=== PATIENT | male | born 1975 | race African-American/Black ===

== ENCOUNTER 2016-07-28 12:05 | Inpatient (IN) | payer OTHER, MEDICAID ==
[2016-07-28] VITALS (12 sets, daily range): BP systolic 113–128; BP diastolic 65–78; PULSE 114–128; RESP 18; TEMP 99.3–101.7; O2SAT 97–100
[2016-07-28] MEDS ORDERED: ETOMIDATE 20 MG/10 ML VIAL ONE (12:09)
[2016-07-28] MEDS ORDERED: ceFAZolin 2 GM PREMIX 50 ML ONE (12:10)
[2016-07-28] MEDS ORDERED: DIPHTH/TETANUS/ACEL PERTUSSIS (BOOSTER) 0.5 ML VIAL/PFS IM ONE ×2 (12:10→12:56)
[2016-07-28] MEDS ORDERED: PROPOFOL 1000 MG/100 ML INJ 100 ML ONE (12:15)
[2016-07-28] MEDS ORDERED: MIDAZOLAM HCL 5 MG/ML VIAL (1 ML) ONE ×2 (12:16→12:25)
[2016-07-28 12:37] LABS: AUTOMATED NEUTROPHIL # 6.8 TH/MM3 (1.8-7.7); BASOPHIL # 0.1 TH/MM3 (0-0.2); EOSINOPHIL # 0.1 TH/MM3 (0-0.4); EOSINOPHIL % 1.2 % (0.0-4.0); HEMATOCRIT 45.6 % (39.0-51.0); HEMO FLAGS DIFF FINAL; LYMPH % 27.3 % (9.0-44.0); MEAN CELL VOLUME 85.4 FL (80.0-100.0); MEAN CORPUSCULAR HEMOGLOBIN 27.9 PG (27.0-34.0); MEAN CORPUSCULAR HGB CONC 32.6 % (32.0-36.0); MONO % 7.6 % (0.0-8.0); NEUT % 62.9 % (16.0-70.0); PLATELET COUNT 355 TH/MM3 (150-450); RED BLOOD COUNT 5.35 MIL/MM3 (4.50-5.90); RED CELL DISTRIBUTION WIDTH 14.3 % (11.6-17.2); WHITE BLOOD COUNT 10.8 TH/MM3 (4.0-11.0)
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
[2016-07-28 12:52] LABS: PROTHROMBIN TIME - PATIENT 10.7 SEC (9.8-11.6)
[2016-07-28 12:53] LABS: APTT (PATIENT) 19.7 SEC (24.3-30.1)
[2016-07-28] MEDS ORDERED: LIDOCAINE 1%/EPINEPHrine 1:100,000 SOLN 50 ML VIAL ONE (12:55)
[2016-07-28] MEDS ORDERED: ceFAZolin 2 GM PREMIX 50 ML IV STA (12:56)
[2016-07-28 13:10] LABS: I-STAT POTASSIUM 3.4 MMOL/L (3.5-4.9); I-STAT SODIUM 139 MMOL/L (138-146)
[2016-07-28] MEDS ORDERED: IOHEXOL 350 MG/ML 10 ML VIAL (for RAD DIAG) IV ONE (13:17)
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
[2016-07-28 13:25] LABS: ANION GAP 12 MEQ/L (5-15); AST (GOT) 19 U/L (15-37); BICARBONATE 22.5 MEQ/L (21.0-32.0); BLOOD UREA NITROGEN 20 MG/DL (7-18); CHLORIDE 103 MEQ/L (98-107); GLOMERULAR FILTRATION RATE 38 ML/MIN (>89); MAGNESIUM 1.8 MG/DL (1.5-2.5); POTASSIUM 3.3 MEQ/L (3.5-5.1); SODIUM (NA) 137 MEQ/L (136-145)
[2016-07-28 13:26] LABS: ALT (GPT) 22 U/L (12-78)
[2016-07-28 13:27] LABS: AMPHETAMINE, URINE NEG (NEG); BARBITURATES, URINE NEG (NEG); COCAINE, URINE NEG (NEG)
--- NOTE | 2016-07-28 13:27 | RADRPT ---
EXAM DATE/TIME: 07/28/2016 13:08 [facility] COMPARISON: CHEST SINGLE AP, July 28, 2016, 11:59. INDICATIONS : Post left chest tube placement. MEDICAL HISTORY : None. SURGICAL HISTORY : None. ENCOUNTER: Subsequent ACUITY: 1 day PAIN SCORE: Non-responsive. LOCATION: Left chest FINDINGS: A single portable frontal view of the chest shows interval placement of a left thoracostomy tube. End otracheal tube tip is repositioned and now 4 cm from the matthew. Nasogastric tube has been placed wit h the tip in the fundus. No pneumothorax observed. Linear areas of parenchymal density seen within april th upper lobes and the left lower lobe consistent with atelectasis. No effusions. Heart is normal in size. Mild scoliotic curvature of the spine. Surgical clips seen at the base of the neck. CONCLUSION: 1. Interval placement of a left thoracostomy tube without pneumothorax. 2. Scattered areas of atelectasis. Juanito Lyons Jr., MD on July 28, 2016 at 13:24 Board Certified Radiologist. This report was verified electronically.
[2016-07-28 13:29] LABS: ACETAMINOPHEN LESS THAN 2.0 MCG/ML (10.0-30.0); ALKALINE PHOSPHATASE 42 U/L (45-117); CREATINE KINASE 572 U/L (39-308); TOTAL BILIRUBIN ADULT 0.5 MG/DL (0.2-1.0)
[2016-07-28] MEDS ORDERED: MISCELLANEOUS NURSING INFORMATION XX SCH ×2 (13:30→14:00)
[2016-07-28] MEDS ORDERED: BISACODYL 10 MG SUPP RECTAL PRN ×2 (13:30→14:00)
[2016-07-28] MEDS ORDERED: CHLORHEXIDINE GLUCONATE 2 % 1 PACK (2 CLOTHS) TOP PRN ×2 (13:30→14:00)
[2016-07-28] MEDS ORDERED: SODIUM CHLORIDE 0.9% FLUSH 10 ML FLUSH IV FLUSH PRN ×2 (13:30→14:00)
[2016-07-28] MEDS ORDERED: SENNOSIDES 8.6 MG TAB PO PRN ×2 (13:30→14:00)
[2016-07-28] MEDS ORDERED: POTASSIUM PHOSPHATE MONOBASIC 500 MG TAB PO/TUBE PRN (13:30)
[2016-07-28] MEDS ORDERED: SODIUM PHOSPHATE INJ 30 MMOL in SODIUM CHLOR 0.9% 250 ML INJ 240 ML IV PRN (13:30)
[2016-07-28] MEDS ORDERED: POTASSIUM CHLOR 20 MEQ PREMIX 100 ML IV PRN ×2 (13:30)
[2016-07-28] MEDS ORDERED: PROPOFOL 1000 MG/100 ML INJ 100 ML IV SCH ×2 (13:30→14:00)
[2016-07-28] MEDS ORDERED: SODIUM CHLOR 0.9% 1000 ML INJ 1,000 ML IV SCH (13:30)
[2016-07-28] MEDS ORDERED: MAGNESIUM SULFATE INJ 4 GM in SODIUM CHLORIDE 0.9% INJ 92 ML IV PRN (13:30)
[2016-07-28] MEDS ORDERED: POTASSIUM CHLOR 40 MEQ PREMIX 100 ML IV PRN ×2 (13:30)
[2016-07-28] MEDS ORDERED: POTASSIUM PHOSPHATE INJ 30 MMOL in SODIUM CHLOR 0.9% 250 ML INJ 250 ML IV PRN (13:30)
[2016-07-28] MEDS ORDERED: MAGNESIUM SULFATE INJ 2 GM in SODIUM CHLORIDE 0.9% INJ 96 ML IV PRN (13:30)
[2016-07-28] MEDS ORDERED: LACTULOSE SYRUP 20 GM/30 ML CUP PO PRN ×2 (13:30→14:00)
[2016-07-28] MEDS ORDERED: MAGNESIUM OXIDE 400 MG TAB PO PRN (13:30)
[2016-07-28] MEDS ORDERED: MAGNESIUM HYDROXIDE SUSP 30 ML CUP PO PRN ×2 (13:30→14:00)
[2016-07-28] MEDS ORDERED: POTASSIUM PHOSPHATE MONOBASIC 500 MG TAB PO PRN (13:30)
[2016-07-28] MEDS ORDERED: POTASSIUM CHLORIDE 25 MEQ EFFERVESCENT TAB PO PRN (13:30)
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
[2016-07-28 13:46] LABS: CKMB 1.5 NG/ML (0.5-3.6)
--- NOTE | 2016-07-28 13:46 | PD.PROCEDR ---
Central Line Procedure REASON FOR PROCEDURE Central venous access PROCEDURE PERFORMED Central line placement: [x ] CONSENT emergency ANESTHESIA Local injection of 1% Lidocaine DESCRIPTION OF THE PROCEDURE The patient was placed in supine, mild Trendelenburg position. The area right inguinal area was exposed and cleansed with ChloraPrep, times two. Large sterile drape was used to cover the patient, with the site exposed, under sterile conditions including cap, face mask, sterile gown, and sterile gloves. On single attempt right femoral vein was cannulated, the introducer needle was inserted with negative pressure in syringe and venous flash was obtained. The guide wire was then advanced without any restriction and the needle was removed. The dilator was used without any complications. Using Seldinger technique the triple lumen large bore [ ] catheter was advanced over the guide wire to a depth of [ 15] centimeters. The guide wire was removed. All ports were aspirated with dark venous blood return and flushed easily with sterile saline. All ports were capped. Antibiotic disc was placed around central line at puncture site. The central line was secured to the skin with two interrupted 2.0 silk sutures. The area was bandaged with sterile see-through central line bandage. RADIOLOGICAL DATA COMPLICATIONS: No apparent complications ESTIMATED BLOOD LOSS: Less than 1 cc. Filomena Cruz MD Jul 28, 2016 13:46
[2016-07-28] MEDS ORDERED: ONDANSETRON HCL 4 MG/2 ML VIAL IV PRN (14:00)
[2016-07-28] MEDS ORDERED: DEXTROSE 50% IN WATER 50 ML VIAL(D50) IV PRN (14:00)
[2016-07-28] MEDS ORDERED: fentaNYL DRIP 250 ML IV SCH (14:00)
[2016-07-28] MEDS ORDERED: RESP: ALBUTEROL 2.5 MG/3 ML NEB (PRN) INH (14:00)
[2016-07-28] MEDS: SODIUM CHLOR 0.9% 1000 ML INJ 1,000 ML IV SCH ×2 (14:00→20:12)
[2016-07-28] MEDS ORDERED: GLUCAGON 1 MG/ML VIAL OTHER PRN (14:00)
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
[2016-07-28 14:28] LABS: BLOOD GAS BASE EXCESS -5.2 mmol/L (-2-2); BLOOD GAS CARBOXYHEMOGLOBIN 0.6 % (0-4); BLOOD GAS HCO3 19 mmol/L (22-26); BLOOD GAS METHEMOGLOBIN 1.2 % (0-2); BLOOD GAS O2 HGB SATURATION 98 % (90-100); BLOOD GAS OXYGEN CONTENT 20.2 Vol % (12.0-20.0); BLOOD GAS PCO2 36 mmHg (38-42); BLOOD GAS PO2 267 mmHg (61-120); BLOOD GAS TOTAL HGB 14.3 G/DL (12.0-16.0); TEMP CORR TO 98.6
[2016-07-28] MEDS: PANTOPRAZOLE SODIUM 40 MG VIAL IV SCH (14:28)
[2016-07-28 14:29] LABS: CRITICAL VALUE NO; OXYGEN DEVICE VENTILATOR
[2016-07-28 14:30] LABS: DRAW SITE RT RADIAL; FIO2 100 %; NUMBER OF ARTERIAL PUNCTURES 2; STAT NO; ULNAR PULSE Y; VENT SETTINGS PRVC/AC
[2016-07-28] MEDS ORDERED: ACTIVATED CHARCOAL/SORBITOL LIQUID 25 GM/120 ML BTL NG ONE (14:30)
[2016-07-28] MEDS ORDERED: SODIUM CHLOR 0.9% 1000 ML INJ 1,000 ML IV ONE ×2 (14:45→17:00)
[2016-07-28] MEDS: RESP: ALBUTEROL 2.5 MG/IPRATROPIUM 0.5 MG NEB (SCH) INH ×2 (16:21→20:07)
[2016-07-28 16:53] LABS: POTASSIUM 3.7 MEQ/L (3.5-5.1)
[2016-07-28] MEDS: INSULIN NovoLIN REGULAR SUPPLEMENTAL SCALE SQ SCH (18:00)
[2016-07-28] MEDS ORDERED: ARTIFICIAL TEARS OPTH SOLN 15 ML BTL EACH EYE SCH ×2 (18:00)
[2016-07-28] MEDS ORDERED: SODIUM CHLORIDE 0.9% FLUSH 10 ML FLUSH IV FLUSH SCH (21:00)
[2016-07-28] MEDS ORDERED: DOCUSATE SODIUM 50 MG/SENNA 8.6 MG TAB PO SCH (21:00)
[2016-07-28] MEDS: DOCUSATE SODIUM 50 MG/SENNA 8.6 MG TAB PO SCH (21:00)
[2016-07-28] MEDS: SODIUM CHLORIDE 0.9% FLUSH 10 ML FLUSH IV FLUSH SCH (21:48)
[2016-07-28 21:56] LABS: BICARBONATE 21.2 MEQ/L (21.0-32.0); MAGNESIUM 1.8 MG/DL (1.5-2.5); POTASSIUM 3.9 MEQ/L (3.5-5.1)
[2016-07-28 22:49] LABS: CKMB 1.6 NG/ML (0.5-3.6)
[2016-07-29] VITALS (17 sets, daily range): BP systolic 88–135; BP diastolic 50–90; PULSE 110–134; RESP 17–24; TEMP 99–101.1; O2SAT 98–100
[2016-07-29] MEDS: RESP: ALBUTEROL 2.5 MG/IPRATROPIUM 0.5 MG NEB (SCH) INH ×2 (03:46→07:52)
[2016-07-29] MEDS ORDERED: CHLORHEXIDINE GLUCONATE 2 % 1 PACK (2 CLOTHS) TOP SCH (04:00)
[2016-07-29] MEDS: CHLORHEXIDINE GLUCONATE 2 % 1 PACK (2 CLOTHS) TOP SCH (04:34)
--- NOTE | 2016-07-29 04:48 | RADRPT ---
EXAM DATE/TIME: 07/29/2016 02:34 [facility] COMPARISON: CHEST SINGLE AP, July 28, 2016, 13:08. INDICATIONS : Shortness of breath, left chest tube. Patient is intubated.. MEDICAL HISTORY : None. SURGICAL HISTORY : None. ENCOUNTER: Subsequent ACUITY: 2 days PAIN SCORE: Non-responsive. LOCATION: Bilateral chest FINDINGS: A single AP semierect view of the chest was obtained and again demonstrates endotracheal tube in plac e with the tip approximately 4 cm above the matthew. A nasogastric tube is seen coursing through the e sophagus and into the stomach. The left-sided chest tube remains in place with the tip projected alejandro g the apex no visualized pneumothorax. The study remains Midinspiratory with crowding of the lung vas culature. Mild hazy opacity remains at the left lung base. CONCLUSION: 1. Left-sided chest tube in place with no pneumothorax. 2. Hazy opacity remains at the left lung base. 3. Midinspiratory exam. Raoul Archer MD on July 29, 2016 at 4:45 Board Certified Radiologist. This report was verified electronically.
[2016-07-29 05:29] LABS: AUTOMATED NEUTROPHIL # 8.8 TH/MM3 (1.8-7.7); BASOPHIL % 0.2 % (0.0-2.0); EOSINOPHIL % 0.1 % (0.0-4.0); HEMATOCRIT 42.5 % (39.0-51.0); HEMO FLAGS DIFF FINAL; LYMPH % 13.7 % (9.0-44.0); LYMPHOCYTE # 1.6 TH/MM3 (1.0-4.8); MEAN CORPUSCULAR HEMOGLOBIN 27.1 PG (27.0-34.0); MEAN CORPUSCULAR HGB CONC 31.6 % (32.0-36.0); MONO % 11.1 % (0.0-8.0); NEUT % 74.9 % (16.0-70.0); PLATELET COUNT 252 TH/MM3 (150-450); RED BLOOD COUNT 4.94 MIL/MM3 (4.50-5.90); RED CELL DISTRIBUTION WIDTH 14.3 % (11.6-17.2); WHITE BLOOD COUNT 11.7 TH/MM3 (4.0-11.0)
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
[2016-07-29] MEDS ORDERED: SODIUM CHLOR 0.9% 1000 ML INJ 1,000 ML IV ONE ×2 (06:00→11:30)
[2016-07-29] MEDS: INSULIN NovoLIN REGULAR SUPPLEMENTAL SCALE SQ SCH ×3 (06:00→12:00)
[2016-07-29 06:01] LABS: ALKALINE PHOSPHATASE 45 U/L (45-117); CREATINE KINASE 957 U/L (39-308)
[2016-07-29 06:02] LABS: ALT (GPT) 22 U/L (12-78); ANION GAP 8 MEQ/L (5-15); AST (GOT) 24 U/L (15-37); BICARBONATE 25.8 MEQ/L (21.0-32.0); BLOOD UREA NITROGEN 13 MG/DL (7-18); CHLORIDE 106 MEQ/L (98-107); INDIRECT BILIRUBIN 0.8 MG/DL (0.0-0.8); MAGNESIUM 2.2 MG/DL (1.5-2.5); POTASSIUM 3.7 MEQ/L (3.5-5.1); SODIUM (NA) 140 MEQ/L (136-145)
[2016-07-29 06:06] LABS: APTT (PATIENT) 24.7 SEC (24.3-30.1); PROTHROMBIN TIME - PATIENT 11.4 SEC (9.8-11.6)
[2016-07-29 06:25] LABS: CKMB 1.7 NG/ML (0.5-3.6)
[2016-07-29] MEDS: DOCUSATE SODIUM 50 MG/SENNA 8.6 MG TAB PO SCH ×2 (09:00→21:00)
[2016-07-29] MEDS: SODIUM CHLORIDE 0.9% FLUSH 10 ML FLUSH IV FLUSH SCH ×2 (09:00→21:00)
[2016-07-29] MEDS ORDERED: MORPHINE SULFATE 4 MG/ML INJ IV PRN (10:15)
[2016-07-29] MEDS ORDERED: ACETAMINOPHEN 325 MG TAB PO PRN (10:15)
[2016-07-29] MEDS ORDERED: ACETAMINOPHEN/HYDROcodone 325 MG/5 MG TAB PO PRN (10:15)
[2016-07-29] MEDS ORDERED: HYDROmorphone HCL PF 1 MG/ML VIAL IV PUSH PRN (10:30)
[2016-07-29] MEDS: PANTOPRAZOLE SODIUM 40 MG VIAL IV SCH (10:52)
[2016-07-29] MEDS ORDERED: TERBUTALINE INJ 1 MG/ML AMP SQ PRN (13:15)
[2016-07-29] MEDS ORDERED: PHENYLEPHRINE INJ 40 MG in DEXTROSE 5% IN WATE 500 ML INJ 496 ML IV SCH ×2 (14:15)
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
[2016-07-29] MEDS: SODIUM CHLOR 0.9% 1000 ML INJ 1,000 ML IV SCH (14:46)
[2016-07-29] MEDS: ENOXAPARIN SODIUM 30 MG/0.3 ML SYRINGE SQ SCH ×2 (17:59→18:59)
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
[2016-07-30] VITALS (10 sets, daily range): BP systolic 133–154; BP diastolic 81–106; PULSE 104–129; RESP 15–26; TEMP 96.5–99.9; O2SAT 95–100
[2016-07-30] MEDS: SODIUM CHLOR 0.9% 1000 ML INJ 1,000 ML IV SCH ×2 (01:45→13:40)
[2016-07-30] MEDS: HYDROmorphone HCL PF 1 MG/ML VIAL IV PUSH PRN ×2 (03:48→23:45)
[2016-07-30] MEDS: CHLORHEXIDINE GLUCONATE 2 % 1 PACK (2 CLOTHS) TOP SCH (04:00)
--- NOTE | 2016-07-30 04:02 | RADRPT ---
EXAM DATE/TIME: 07/30/2016 02:47 [place] COMPARISON: CHEST SINGLE AP, July 29, 2016, 2:34. INDICATIONS : Status post extubation. Chest tube remains in place.. MEDICAL HISTORY : None. SURGICAL HISTORY : None. ENCOUNTER: Subsequent ACUITY: 3 days PAIN SCORE: Non-responsive. LOCATION: Bilateral chest FINDINGS: A single AP portable semierect view of the chest was obtained and demonstrates interval extubation an d removal of the nasogastric tube. The left-sided chest tube remains in place with no visualized pneu mothorax. There are no confluent infiltrates or effusions. The heart size is at the upper limits of n ormal. CONCLUSION: 1. Interval extubation and removal of nasogastric tube. 2. Left-sided chest tube in place with no pneumothorax. Raoul Archer MD on July 30, 2016 at 3:59 Board Certified Radiologist. This report was verified electronically.
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
[2016-07-30] MEDS: INSULIN NovoLIN REGULAR SUPPLEMENTAL SCALE SQ SCH ×4 (07:00→21:00)
[2016-07-30 08:22] LABS: HEMATOCRIT 38.5 % (39.0-51.0); MEAN CELL VOLUME 84.9 FL (80.0-100.0); MEAN CORPUSCULAR HEMOGLOBIN 27.3 PG (27.0-34.0); MEAN CORPUSCULAR HGB CONC 32.2 % (32.0-36.0); PLATELET COUNT 246 TH/MM3 (150-450); RED BLOOD COUNT 4.54 MIL/MM3 (4.50-5.90); RED CELL DISTRIBUTION WIDTH 14.1 % (11.6-17.2); REVIEW FLAG FINAL; WHITE BLOOD COUNT 10.5 TH/MM3 (4.0-11.0)
[2016-07-30 08:32] LABS: BICARBONATE 25.7 MEQ/L (21.0-32.0); POTASSIUM 3.2 MEQ/L (3.5-5.1)
[2016-07-30] MEDS ORDERED: POTASSIUM CHLOR 40 MEQ PREMIX 100 ML IV ONE (09:00)
[2016-07-30] MEDS ORDERED: POTASSIUM CHLORIDE 10 MEQ CONTROLLED RELEASE TAB PO ONE (09:00)
[2016-07-30] MEDS: SODIUM CHLORIDE 0.9% FLUSH 10 ML FLUSH IV FLUSH SCH ×2 (09:00→23:44)
[2016-07-30 09:07] LABS: CKMB 0.7 NG/ML (0.5-3.6)
--- NOTE | 2016-07-30 09:46 | EKG ---
Date Performed: 07/29/2016 Time Performed: 11:57:04 PTAGE: 89 years EKG: probable sinus tachycardia. Inferior and anterior T wave changes are nonspecific Abnormal E CG NO PREVIOUS TRACING DOCTOR: Timmy Valdes Interpretating Date/Time 07/30/2016 09:37:18
--- NOTE | 2016-07-30 09:49 | EKG ---
Date Performed: 07/29/2016 Time Performed: 09:13:42 PTAGE: 89 years EKG: Sinus tachycardia. Extensive T wave changes are nonspecific Borderline ECG NO PREVIOUS TRACING DOCTOR: Timmy Valdes Interpretating Date/Time 07/30/2016 09:39:45
--- NOTE | 2016-07-30 09:51 | EKG ---
Date Performed: 07/29/2016 Time Performed: 07:02:46 PTAGE: 89 years EKG: Sinus tachycardia. Extensive T wave changes are nonspecific Borderline ECG NO PREVIOUS TRACING DOCTOR: Timmy Valdes Interpretating Date/Time 07/30/2016 09:40:38
--- NOTE | 2016-07-30 09:53 | EKG ---
Date Performed: 07/29/2016 Time Performed: 04:39:48 PTAGE: 89 years EKG: Sinus tachycardia. Extensive T wave changes may be due to myocardial ischemia Abnormal ECG PREVIOUS TRACING : 07/29/2016 02.32 DOCTOR: Timmy Valdes Interpretating Date/Time 07/30/2016 09:41:49
--- NOTE | 2016-07-30 09:54 | EKG ---
Date Performed: 07/29/2016 Time Performed: 02:32:04 PTAGE: 89 years EKG: Sinus tachycardia. Extensive T wave changes may be due to myocardial ischemia Abnormal ECG PREVIOUS TRACING : 07/29/2016 00.43 DOCTOR: Timmy Valdes Interpretating Date/Time 07/30/2016 09:44:26
--- NOTE | 2016-07-30 09:56 | EKG ---
Date Performed: 07/29/2016 Time Performed: 00:43:46 PTAGE: 89 years EKG: Sinus tachycardia. Extensive T wave changes may be due to myocardial ischemia Abnormal ECG PREVIOUS TRACING : 07/28/2016 22.24 DOCTOR: Timmy Valdes Interpretating Date/Time 07/30/2016 09:45:53
--- NOTE | 2016-07-30 09:58 | EKG ---
Date Performed: 07/28/2016 Time Performed: 22:24:34 PTAGE: 89 years EKG: Sinus tachycardia. Possible anterior infarct - age undetermined Inferior/lateral T wave ricardo nges are nonspecific Abnormal ECG PREVIOUS TRACING : 07/28/2016 20.08 DOCTOR: Timmy Valdes Interpretating Date/Time 07/30/2016 09:47:11
--- NOTE | 2016-07-30 10:02 | EKG ---
Date Performed: 07/28/2016 Time Performed: 20:08:28 PTAGE: 89 years EKG: Sinus tachycardia. Extensive ST-T changes may be due to myocardial ischemia Low QRS voltage s in precordial leads Abnormal ECG PREVIOUS TRACING : 07/28/2016 18.28 DOCTOR: Timmy Valdes Interpretating Date/Time 07/30/2016 09:48:59
--- NOTE | 2016-07-30 10:04 | EKG ---
Date Performed: 07/28/2016 Time Performed: 18:28:56 PTAGE: 89 years EKG: Sinus tachycardia. Extensive ST-T changes are nonspecific Low QRS voltages in precordial le ads Borderline ECG NO PREVIOUS TRACING DOCTOR: Timmy Valdes Interpretating Date/Time 07/30/2016 09:51:10
--- NOTE | 2016-07-30 10:06 | EKG ---
Date Performed: 07/28/2016 Time Performed: 16:36:42 PTAGE: 89 years EKG: Sinus tachycardia. Extensive ST-T changes may be due to myocardial ischemia Low QRS voltage s in precordial leads Abnormal ECG PREVIOUS TRACING : 07/28/2016 16.34 DOCTOR: Timmy Valdes Interpretating Date/Time 07/30/2016 09:52:07
--- NOTE | 2016-07-30 10:11 | EKG ---
Date Performed: 07/28/2016 Time Performed: 13:57:02 PTAGE: 89 years EKG: Sinus tachycardia. Extensive ST-T changes may be due to myocardial ischemia Low QRS voltage s in precordial leads Abnormal ECG NO PREVIOUS TRACING DOCTOR: Timmy Valdes Interpretating Date/Time 07/30/2016 09:54:40
--- NOTE | 2016-07-30 10:13 | EKG ---
Date Performed: 07/28/2016 Time Performed: 12:22:32 PTAGE: 89 years EKG: SINUS TACHYCARDIA, POSSIBLE ATRIAL FLUTTER NONSPECIFIC ST & T-WAVE ABNORMALITY ABNORMAL RHY THM ECG INTERPRETATION BASED ON A DEFAULT AGE OF 41 YEARS NO PREVIOUS TRACING DOCTOR: Timmy Valdes Interpretating Date/Time 07/30/2016 09:55:27
[2016-07-30] MEDS: PANTOPRAZOLE SODIUM 40 MG VIAL IV SCH (10:21)
[2016-07-30] MEDS: DOCUSATE SODIUM 50 MG/SENNA 8.6 MG TAB PO SCH ×2 (10:21→23:45)
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
[2016-07-30] MEDS: ENOXAPARIN SODIUM 30 MG/0.3 ML SYRINGE SQ SCH (18:20)
[2016-07-31] VITALS (8 sets, daily range): BP systolic 121–144; BP diastolic 87–98; PULSE 102–132; RESP 18–20; TEMP 97–99.3; O2SAT 93–98
[2016-07-31] MEDS: SODIUM CHLOR 0.9% 1000 ML INJ 1,000 ML IV SCH ×2 (01:40→08:54)
[2016-07-31] MEDS: CHLORHEXIDINE GLUCONATE 2 % 1 PACK (2 CLOTHS) TOP SCH (04:00)
[2016-07-31] MEDS: ENOXAPARIN SODIUM 30 MG/0.3 ML SYRINGE SQ SCH ×2 (04:45→15:59)
[2016-07-31 05:35] LABS: AUTOMATED NEUTROPHIL # 6.6 TH/MM3 (1.8-7.7); BASOPHIL # 0.1 TH/MM3 (0-0.2); BASOPHIL % 0.6 % (0.0-2.0); EOSINOPHIL # 0.4 TH/MM3 (0-0.4); EOSINOPHIL % 4.5 % (0.0-4.0); HEMATOCRIT 37.6 % (39.0-51.0); HEMO FLAGS DIFF FINAL; LYMPH % 17.9 % (9.0-44.0); LYMPHOCYTE # 1.7 TH/MM3 (1.0-4.8); MEAN CELL VOLUME 86.1 FL (80.0-100.0); MEAN CORPUSCULAR HEMOGLOBIN 27.6 PG (27.0-34.0); MONO % 9.1 % (0.0-8.0); NEUT % 67.9 % (16.0-70.0); PLATELET COUNT 251 TH/MM3 (150-450); RED BLOOD COUNT 4.37 MIL/MM3 (4.50-5.90); RED CELL DISTRIBUTION WIDTH 13.8 % (11.6-17.2); WHITE BLOOD COUNT 9.7 TH/MM3 (4.0-11.0)
[2016-07-31 06:12] LABS: ALKALINE PHOSPHATASE 46 U/L (45-117); ALT (GPT) 18 U/L (12-78); ANION GAP 12 MEQ/L (5-15); AST (GOT) 17 U/L (15-37); BICARBONATE 23.4 MEQ/L (21.0-32.0); BLOOD UREA NITROGEN 12 MG/DL (7-18); CHLORIDE 103 MEQ/L (98-107); GLOMERULAR FILTRATION RATE 62 ML/MIN (>89); POTASSIUM 3.2 MEQ/L (3.5-5.1); SODIUM (NA) 138 MEQ/L (136-145); TOTAL BILIRUBIN ADULT 0.3 MG/DL (0.2-1.0)
[2016-07-31] MEDS: INSULIN NovoLIN REGULAR SUPPLEMENTAL SCALE SQ SCH ×4 (06:23→20:51)
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
[2016-07-31] MEDS ORDERED: POTASSIUM CHLOR 20 MEQ PREMIX 100 ML IV ONE (08:00)
[2016-07-31] MEDS ORDERED: POTASSIUM CHLORIDE 20 MEQ CONTROLLED RELEASE TAB PO ONE (08:00)
[2016-07-31] MEDS: DOCUSATE SODIUM 50 MG/SENNA 8.6 MG TAB PO SCH ×2 (08:53→20:49)
[2016-07-31] MEDS: SODIUM CHLORIDE 0.9% FLUSH 10 ML FLUSH IV FLUSH SCH ×2 (08:53→20:49)
[2016-07-31] MEDS: PANTOPRAZOLE SODIUM 40 MG VIAL IV SCH (08:53)
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
[2016-07-31] MEDS: HYDROmorphone HCL PF 1 MG/ML VIAL IV PUSH PRN (17:55)
[2016-08-01] VITALS (7 sets, daily range): BP systolic 137–146; BP diastolic 82–96; PULSE 106–124; RESP 18–20; TEMP 97.1–99.1; O2SAT 93–99
[2016-08-01] MEDS: ENOXAPARIN SODIUM 30 MG/0.3 ML SYRINGE SQ SCH ×2 (04:46→16:42)
[2016-08-01 05:21] LABS: ALT (GPT) 24 U/L (12-78); ANION GAP 8 MEQ/L (5-15); AST (GOT) 17 U/L (15-37); BICARBONATE 24.8 MEQ/L (21.0-32.0); BLOOD UREA NITROGEN 13 MG/DL (7-18); CHLORIDE 107 MEQ/L (98-107); GLOMERULAR FILTRATION RATE 69 ML/MIN (>89); MAGNESIUM 2.1 MG/DL (1.5-2.5); POTASSIUM 3.6 MEQ/L (3.5-5.1); SODIUM (NA) 140 MEQ/L (136-145)
[2016-08-01 05:22] LABS: ALKALINE PHOSPHATASE 46 U/L (45-117); BASOPHIL # 0.1 TH/MM3 (0-0.2); EOSINOPHIL # 0.5 TH/MM3 (0-0.4); EOSINOPHIL % 6.1 % (0.0-4.0); HEMATOCRIT 36.5 % (39.0-51.0); HEMO FLAGS DIFF FINAL; LYMPH % 22.4 % (9.0-44.0); LYMPHOCYTE # 1.9 TH/MM3 (1.0-4.8); MEAN CELL VOLUME 85.2 FL (80.0-100.0); MEAN CORPUSCULAR HEMOGLOBIN 27.3 PG (27.0-34.0); MEAN CORPUSCULAR HGB CONC 32.1 % (32.0-36.0); MONO % 10.8 % (0.0-8.0); NEUT % 59.7 % (16.0-70.0); PLATELET COUNT 269 TH/MM3 (150-450); RED BLOOD COUNT 4.28 MIL/MM3 (4.50-5.90); RED CELL DISTRIBUTION WIDTH 13.5 % (11.6-17.2); TOTAL BILIRUBIN ADULT 0.3 MG/DL (0.2-1.0); WHITE BLOOD COUNT 8.4 TH/MM3 (4.0-11.0)
[2016-08-01] MEDS: INSULIN NovoLIN REGULAR SUPPLEMENTAL SCALE SQ SCH ×4 (06:02→20:45)
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
[2016-08-01] MEDS: SODIUM CHLORIDE 0.9% FLUSH 10 ML FLUSH IV FLUSH SCH ×2 (08:15→20:44)
[2016-08-01] MEDS: PANTOPRAZOLE SODIUM 40 MG VIAL IV SCH (08:17)
[2016-08-01] MEDS: DOCUSATE SODIUM 50 MG/SENNA 8.6 MG TAB PO SCH ×2 (08:17→20:52)
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
[2016-08-01] MEDS ORDERED: SENN1TAB PO (15:34)
[2016-08-01] MEDS ORDERED: ACET1TAB86 PO (15:34)
[2016-08-01] MEDS ORDERED: MAGN400S PO (15:34)
[2016-08-01] MEDS: oxyCODONE/ACETAMINOPHEN 5 MG/325 MG TAB PO PRN (22:50)
[2016-08-02] VITALS (7 sets, daily range): BP systolic 141–156; BP diastolic 93–101; PULSE 107–122; RESP 18–20; TEMP 97.6–99; O2SAT 94–96
[2016-08-02] MEDS: INSULIN NovoLIN REGULAR SUPPLEMENTAL SCALE SQ SCH ×4 (05:08→20:02)
[2016-08-02] MEDS: ENOXAPARIN SODIUM 30 MG/0.3 ML SYRINGE SQ SCH ×2 (05:59→16:16)
[2016-08-02] MEDS: DOCUSATE SODIUM 50 MG/SENNA 8.6 MG TAB PO SCH ×2 (08:44→19:56)
[2016-08-02] MEDS: SODIUM CHLORIDE 0.9% FLUSH 10 ML FLUSH IV FLUSH SCH ×2 (08:44→19:48)
[2016-08-02] MEDS: PANTOPRAZOLE SODIUM 40 MG VIAL IV SCH (08:44)
[2016-08-02] MEDS: oxyCODONE/ACETAMINOPHEN 5 MG/325 MG TAB PO PRN (09:27)
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
[2016-08-03] MEDS: oxyCODONE/ACETAMINOPHEN 5 MG/325 MG TAB PO PRN ×2 (00:14→10:18)
[2016-08-03 00:54] VITALS: BP 141/88; PULSE 111; RESP 20; TEMP 99; O2SAT 98
[2016-08-03] MEDS: ENOXAPARIN SODIUM 30 MG/0.3 ML SYRINGE SQ SCH (04:00)
[2016-08-03 04:28] VITALS: BP 142/92; PULSE 103; RESP 18; TEMP 98.1; O2SAT 96
[2016-08-03] MEDS: INSULIN NovoLIN REGULAR SUPPLEMENTAL SCALE SQ SCH (06:20)
[2016-08-03 08:00] VITALS: BP 159/102; PULSE 103; PULSE 119; RESP 16; TEMP 97.2; O2SAT 93
[2016-08-03] MEDS: SODIUM CHLORIDE 0.9% FLUSH 10 ML FLUSH IV FLUSH SCH (09:00)
[2016-08-03] MEDS: PANTOPRAZOLE SODIUM 40 MG VIAL IV SCH (09:00)
[2016-08-03] MEDS: DOCUSATE SODIUM 50 MG/SENNA 8.6 MG TAB PO SCH (09:57)
[2016-08-03] MEDS ORDERED: LORazepam 0.5 MG TAB PO PRN (13:00)
[2016-08-03] MEDS ORDERED: ACETAMINOPHEN 325 MG TAB PO PRN (13:00)
[2016-08-03] MEDS ORDERED: LORazepam 2 MG/ML VIAL IM PRN ×2 (13:00)
[2016-08-03] MEDS ORDERED: ALUMINUM/MAGNESIUM/SIMETH 30 ML CUP PO PRN (13:00)
[2016-08-03] MEDS ORDERED: LORazepam 1 MG TAB PO PRN (13:00)
[2016-08-03] MEDS ORDERED: MAGNESIUM HYDROXIDE SUSP 30 ML CUP PO PRN (13:00)
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
[2016-08-04] MEDS ORDERED: [UNRECOGNIZED DRUG - REMARK] T-DERMAL SCH (09:00)
[2016-08-04] MEDS ORDERED: NICOTINE 21 MG/24 HR PATCH T-DERMAL SCH (09:00)
[2016-08-12] MEDS ORDERED: HYDR-3133 PO (09:55)
== END 2016-08-03 17:01 | DRG 604 ==
LOC: NEPI 12:05 → EDBD 13:20 → NEDA 13:20 → N03A 13:34 → N07A 07-30 15:46
PROVIDERS: ADMIT Surgery Trauma Surgery; ATTEND Surgery Trauma Surgery
PROC: 02HV33Z Insertion of Infusion Device into Superior Vena Cava, Percutaneous Approach (ICD-10-PCS; principal; 2016-07-28)
PROC: 5A1945Z Respiratory Ventilation, 24-96 Consecutive Hours (ICD-10-PCS; 2016-07-28)
PROC: 0BH17EZ Insertion of Endotracheal Airway into Trachea, Via Natural or Artificial Opening (ICD-10-PCS; 2016-07-28)
DX: S21.112A Laceration without foreign body of left front wall of thorax without penetration into thoracic cavity, initial encounter (principal); J96.00 Acute respiratory failure, unspecified whether with hypoxia or hypercapnia; N17.9 Acute kidney failure, unspecified; J98.2 Interstitial emphysema; S11.81XA Laceration without foreign body of other specified part of neck, initial encounter; J98.11 Atelectasis; I10 Essential (primary) hypertension; E86.1 Hypovolemia; S27.0XXA Traumatic pneumothorax, initial encounter; S27.322A Contusion of lung, bilateral, initial encounter; X78.1XXA Intentional self-harm by knife, initial encounter; Y92.410 Unspecified street and highway as the place of occurrence of the external cause; F25.0 Schizoaffective disorder, bipolar type; E87.6 Hypokalemia; H57.03 Miosis; J32.4 Chronic pansinusitis; K21.9 Gastro-esophageal reflux disease without esophagitis; T43.592A Poisoning by other antipsychotics and neuroleptics, intentional self-harm, initial encounter; Z72.0 Tobacco use
CPT/HCPCS: 31500; 32551; 36556; 36600; 51702; 70450; 70498; 71010; 71260; 72125; 72170; 74177; 76937; 80048; 80053; 80076; 80307; 82140; 82435; 82550; 82552; 82565; 82805; 82947; 82948; 83605; 83735; 84100; 84132; 84295; 84520; 85025; 85027; 85610; 85730; 86850; 86900; 86901; 87641; 90471; 90715; 93005; 94002; 94003; 94150; 94640; 94664; 94667; 94668; 96374; 96375; 99291; C9113; G0390; J0690; J1170; J1650; J2250; J3010; J3480; J7030; Q9967

== ENCOUNTER 2016-08-03 14:53 | Inpatient (IN) | payer MEDICAID, OTHER ==
[~2016-08-03] VITALS: Ht 177.8 cm; Wt 115.8 kg
[~2016-08-03 14:53] MED LIST: ACET1TAB86 PO; MAGN400S PO; SENN1TAB PO
[2016-08-03 17:10] VITALS: BP 176/110; PULSE 129; RESP 22; TEMP 99; O2SAT 97
[2016-08-03] MEDS ORDERED: MAGNESIUM HYDROXIDE SUSP 30 ML CUP PO PRN (17:30)
[2016-08-03] MEDS ORDERED: LORazepam 2 MG/ML VIAL IM PRN (17:30)
[2016-08-03] MEDS ORDERED: ACETAMINOPHEN 325 MG TAB PO PRN (17:30)
[2016-08-03] MEDS ORDERED: ALUMINUM/MAGNESIUM/SIMETH 30 ML CUP PO PRN (17:30)
[2016-08-03] MEDS ORDERED: BENZTROPINE MESYLATE 1 MG TAB PO PRN (17:30)
[2016-08-03] MEDS ORDERED: BENZTROPINE MESYLATE 2 MG/2 ML VIAL IM PRN (17:30)
[2016-08-03] MEDS ORDERED: diphenhydrAMINE HCL 50 MG CAP PO PRN (17:30)
[2016-08-03 18:45] VITALS: BP 173/120; PULSE 96
[2016-08-03] MEDS: cloNIDine HCL 0.1 MG TAB PO PRN (19:07)
[2016-08-03] MEDS: LORazepam 1 MG TAB PO PRN (19:07)
[2016-08-03] MEDS ORDERED: OLANZapine IM 10 MG VIAL IM ONE (20:34)
[2016-08-03] MEDS ORDERED: diphenhydrAMINE HCL 50 MG/ML VIAL ONE (20:35)
[2016-08-03] MEDS: oxyCODONE/ACETAMINOPHEN 5 MG/325 MG TAB PO PRN (20:35)
[2016-08-04] MEDS: LORazepam 1 MG TAB PO PRN (03:39)
[2016-08-04] MEDS: cloNIDine HCL 0.1 MG TAB PO PRN (04:00)
[2016-08-04 05:36] VITALS: BP 141/91; PULSE 100; RESP 18; TEMP 97.6; O2SAT 97
[2016-08-04] MEDS: NICOTINE 21 MG/24 HR PATCH T-DERMAL SCH (09:00)
[2016-08-04 10:11] LABS: BASOPHIL # 0.1 TH/MM3 (0-0.2); BASOPHIL % 0.8 % (0.0-2.0); EOSINOPHIL # 0.3 TH/MM3 (0-0.4); EOSINOPHIL % 3.7 % (0.0-4.0); HEMATOCRIT 37.2 % (39.0-51.0); HEMO FLAGS DIFF FINAL; LYMPH % 19.7 % (9.0-44.0); LYMPHOCYTE # 1.8 TH/MM3 (1.0-4.8); MEAN CORPUSCULAR HEMOGLOBIN 28.2 PG (27.0-34.0); MEAN CORPUSCULAR HGB CONC 33.2 % (32.0-36.0); MONO % 9.4 % (0.0-8.0); NEUT % 66.4 % (16.0-70.0); PLATELET COUNT 373 TH/MM3 (150-450); RED BLOOD COUNT 4.38 MIL/MM3 (4.50-5.90); RED CELL DISTRIBUTION WIDTH 14.1 % (11.6-17.2)
[2016-08-04 10:36] LABS: ANION GAP 10 MEQ/L (5-15); AST (GOT) 21 U/L (15-37); BICARBONATE 23.8 MEQ/L (21.0-32.0); BLOOD UREA NITROGEN 16 MG/DL (7-18); CHLORIDE 106 MEQ/L (98-107); GLOMERULAR FILTRATION RATE 81 ML/MIN (>89); POTASSIUM 3.7 MEQ/L (3.5-5.1); SODIUM (NA) 140 MEQ/L (136-145)
[2016-08-04 10:37] LABS: ALT (GPT) 31 U/L (12-78)
[2016-08-04 10:39] LABS: ALKALINE PHOSPHATASE 47 U/L (45-117); HDL CHOLESTEROL 46.4 MG/DL (40.0-60.0); LDL CHOLESTEROL 67 MG/DL (0-99); TOTAL BILIRUBIN ADULT 0.5 MG/DL (0.2-1.0)
[2016-08-04] MEDS ORDERED: MAGNESIUM HYDROXIDE SUSP 30 ML CUP PO PRN (12:30)
[2016-08-04] MEDS ORDERED: LORazepam 2 MG TAB PO STA (12:39)
[2016-08-04] MEDS ORDERED: cloNIDine HCL 0.2 MG TAB PO STA (12:39)
[2016-08-04 12:44] VITALS: BP 167/110; PULSE 132
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
[2016-08-04 16:20] LABS: HEMOGLOBIN A1a 1.1 %; HEMOGLOBIN Ao 84.8 %; HEMOGLOBIN LA1C 1.8 %; HEMOGLOBIN P3 3.7 %
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
[2016-08-04 16:36] VITALS: BP 132/82; PULSE 106
[2016-08-04 17:21] VITALS: BP 132/82; PULSE 106; RESP 18; TEMP 98; O2SAT 98
[2016-08-04] MEDS: amLODIPine BESYLATE 5 MG TAB PO SCH (18:04)
[2016-08-04] MEDS: CARVEDILOL 3.125 MG TAB PO SCH (21:00)
[2016-08-04] MEDS: REMOVE OLD PATCH T-DERMAL SCH (21:00)
[2016-08-04] MEDS: oxyCODONE/ACETAMINOPHEN 5 MG/325 MG TAB PO PRN (21:30)
[2016-08-04] MEDS: OLANZapine ODT 15 MG TAB PO SCH (21:30)
[2016-08-04] MEDS: diphenhydrAMINE HCL 50 MG CAP PO PRN (21:35)
[2016-08-05] MEDS: LORazepam 1 MG TAB PO PRN ×2 (01:48→21:25)
[2016-08-05 06:05] VITALS: BP 160/99; PULSE 119; RESP 18; TEMP 98.4; O2SAT 96
[2016-08-05] MEDS: amLODIPine BESYLATE 5 MG TAB PO SCH (08:41)
[2016-08-05] MEDS: CARVEDILOL 3.125 MG TAB PO SCH ×2 (08:41→20:13)
[2016-08-05] MEDS: NICOTINE 21 MG/24 HR PATCH T-DERMAL SCH (08:42)
--- NOTE | 2016-08-05 13:33 | EKG ---
Date Performed: 08/04/2016 Time Performed: 12:47:10 PTAGE: 41 years EKG: SINUS TACHYCARDIA MODERATE INTRAVENTRICULAR CONDUCTION DELAY NONSPECIFIC T-WAVE ABNORMALITY ABNORMAL RHYTHM ECG PREVIOUS TRACING : 07/29/2016 11.57 Compared to prior tracing no significant change DOCTOR: Zia Gonzalez Interpretating Date/Time 08/05/2016 13:31:14
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
[2016-08-05 18:41] VITALS: BP 168/108; PULSE 117; RESP 18; TEMP 98.3; O2SAT 97
[2016-08-05] MEDS: cloNIDine HCL 0.1 MG TAB PO PRN (18:45)
[2016-08-05] MEDS: REMOVE OLD PATCH T-DERMAL SCH (20:13)
[2016-08-05] MEDS: OLANZapine ODT 15 MG TAB PO SCH (20:13)
[2016-08-05] MEDS: oxyCODONE/ACETAMINOPHEN 5 MG/325 MG TAB PO PRN (20:14)
[2016-08-05 22:41] VITALS: BP 156/101; PULSE 118
[2016-08-05] MEDS: ALUMINUM/MAGNESIUM/SIMETH 30 ML CUP PO PRN (22:41)
[2016-08-05] MEDS: diphenhydrAMINE HCL 50 MG CAP PO PRN (22:59)
[2016-08-06 06:08] VITALS: BP 148/99; PULSE 106; RESP 18; TEMP 97.9; O2SAT 100
[2016-08-06] MEDS: NICOTINE 21 MG/24 HR PATCH T-DERMAL SCH (09:00)
[2016-08-06] MEDS: amLODIPine BESYLATE 5 MG TAB PO SCH (09:00)
[2016-08-06] MEDS: CARVEDILOL 6.25 MG TAB PO SCH ×2 (09:00→20:25)
[2016-08-06 11:19] VITALS: BP 158/74; PULSE 108; RESP 16
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
[2016-08-06] MEDS: ALUMINUM/MAGNESIUM/SIMETH 30 ML CUP PO PRN (19:52)
[2016-08-06] MEDS: OLANZapine ODT 15 MG TAB PO SCH (20:25)
[2016-08-06] MEDS: REMOVE OLD PATCH T-DERMAL SCH (21:00)
[2016-08-06] MEDS: LORazepam 1 MG TAB PO PRN (21:27)
[2016-08-06] MEDS: hydrOXYzine HCL 50 MG TAB PO PRN (21:33)
[2016-08-06] MEDS: ACETAMINOPHEN 325 MG TAB PO PRN (22:15)
[2016-08-07 06:15] VITALS: BP 146/97; PULSE 110; RESP 18; TEMP 97.9; O2SAT 96
[2016-08-07] MEDS: NICOTINE 21 MG/24 HR PATCH T-DERMAL SCH (08:54)
[2016-08-07] MEDS: CARVEDILOL 6.25 MG TAB PO SCH ×2 (08:55→20:59)
[2016-08-07] MEDS: amLODIPine BESYLATE 5 MG TAB PO SCH (08:55)
--- NOTE | 2016-08-07 11:51 | HHI.PYPN ---
Subjective Remarks Patient seen in his room with [facility] and medical student Ramiro. Chart reviewed. Patient continues calm to somewhat decreased range of intensity was affect speech is whisper quiet somewhat tangential, there is some poor eye contact. Patient states voices persist but did not is intrusive or demanding. He denies suicidality or homicidality. Patient is vague about placement issues asked us to call his mother. For now continue treatment Review of Systems Except as stated in HPI: all other systems reviewed are Neg Objective Alert: Yes [place]: Person, Place Mood: Oppositional Affect: Flat Memory Intact: Immediate (not tested) Hallucinations: Auditory ("getting better") Delusions: Yes Delusion Type: Paranoid (less so) Suicidal: Ideation (denies) Homicidal: Ideation (denies) Insight/Judgment Very poor Vitals/IOs Vital Signs Date Time Temp Pulse Resp B/P Pulse Ox O2 Delivery O2 Flow Rate FiO2 08/07/16 06:15 97.9 110 18 146/97 96 Assessment & Plan Problem List: (1) Schizoaffective disorder, bipolar type ICD Code: F25.0 Assessment & Plan Estimated LOS: days patient continue psychotic the now appears somewhat depressed. Perhaps his cycling towards that direction. For now continue treatment will of counselor contact patient's mother to get further information Justification for Cont. Inpt. At this time patient will decompensate place to the lower level of care Discharge Planning To be determined Request HC Surrog/Guard Advoc?: No Ko Schrader MD Aug 07, 2016 11:51
[2016-08-07] MEDS: ACETAMINOPHEN 325 MG TAB PO PRN (19:18)
[2016-08-07] MEDS: OLANZapine ODT 15 MG TAB PO SCH (20:59)
[2016-08-07] MEDS: LORazepam 1 MG TAB PO PRN (21:00)
[2016-08-07] MEDS: hydrOXYzine HCL 50 MG TAB PO PRN (21:00)
[2016-08-07] MEDS: REMOVE OLD PATCH T-DERMAL SCH (21:00)
[2016-08-07] MEDS: oxyCODONE/ACETAMINOPHEN 5 MG/325 MG TAB PO PRN (21:23)
[2016-08-08 00:46] VITALS: BP 150/86; PULSE 98; RESP 18; TEMP 98.3; O2SAT 97
[2016-08-08 05:47] VITALS: BP 157/107; PULSE 128; RESP 18; TEMP 98.1
[2016-08-08] MEDS: CARVEDILOL 6.25 MG TAB PO SCH ×2 (08:05→20:30)
[2016-08-08] MEDS: NICOTINE 21 MG/24 HR PATCH T-DERMAL SCH (08:06)
--- NOTE | 2016-08-08 09:51 | HHI.PYPN ---
Subjective Remarks Patient seen in [facility] with nurse Dora and medical student Randy, chart reviewed. Patient compliant medications. His mood remained somewhat depressed his affect continues a marked decrease range of motion intensity also continue somewhat confused disoriented Zara does have a court date for some reason , that we need to contact his "best friend", though he is vague about us talking with his mother for now continue treatment no change Review of Systems Except as stated in HPI: all other systems reviewed are Neg Objective Alert: Yes [place]: Person, Place Mood: Oppositional Affect: Flat Memory Intact: Immediate (not tested) Hallucinations: Auditory ("getting better") Delusions: Yes Delusion Type: Paranoid (less so) Suicidal: Ideation (denies) Homicidal: Ideation (denies) Insight/Judgment Very poor Vitals/IOs Vital Signs Date Time Temp Pulse Resp B/P Pulse Ox O2 Delivery O2 Flow Rate FiO2 08/08/16 05:47 98.1 128 18 157/107 08/08/16 00:46 97 Assessment & Plan Problem List: (1) Schizoaffective disorder, bipolar type ICD Code: F25.0 Assessment & Plan Estimated LOS: days patient continues somewhat paranoid delusional, though he is compliant with his medications. For now continue treatment Justification for Cont. Inpt. At this time patient will decompensate if placed in a lower level of care Discharge Planning To be determined Request HC Surrog/Guard Advoc?: Ko New MD Aug 08, 2016 09:51
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
[2016-08-08 14:53] VITALS: BP 145/92; PULSE 115; RESP 16; TEMP 97.3; O2SAT 97
[2016-08-08 18:07] VITALS: BP 136/84; PULSE 116; RESP 18; TEMP 96.9; O2SAT 96
[2016-08-08] MEDS: hydrOXYzine HCL 50 MG TAB PO PRN (20:29)
[2016-08-08] MEDS: LORazepam 1 MG TAB PO PRN (20:30)
[2016-08-08] MEDS: REMOVE OLD PATCH T-DERMAL SCH (21:00)
[2016-08-08] MEDS: OLANZapine ODT 15 MG TAB PO SCH (21:00)
[2016-08-09] MEDS: ACETAMINOPHEN 325 MG TAB PO PRN ×2 (00:20→11:08)
[2016-08-09] MEDS: diphenhydrAMINE HCL 50 MG CAP PO PRN (00:20)
[2016-08-09 06:17] VITALS: BP 155/83; PULSE 104; RESP 18; TEMP 97.8; O2SAT 97
[2016-08-09] MEDS: CARVEDILOL 6.25 MG TAB PO SCH ×2 (09:00→20:48)
[2016-08-09] MEDS: NICOTINE 21 MG/24 HR PATCH T-DERMAL SCH (09:00)
--- NOTE | 2016-08-09 13:54 | HHI.PYPN ---
Subjective Remarks Patient seen in [place] nurse Braulio. Patient chart review, patient compliant medications, patient showing increase in focus, affect, increased eye contact, somewhat more feisty.. He denies suicidality homicidality voices or visions. At this time patient no longer meets Floyd criteria will lift Floyd act patient is willing to sign voluntary will allow the patient to sign voluntary continue treatment Review of Systems Except as stated in HPI: all other systems reviewed are Neg Objective Alert: Yes [place]: Person, Place Mood: Oppositional Affect: Flat Memory Intact: Immediate (not tested) Hallucinations: Auditory (denies today) Delusions: Yes Delusion Type: Paranoid (less so) Suicidal: Ideation (denies) Homicidal: Ideation (denies) Insight/Judgment Poor Vitals/IOs Vital Signs Date Time Temp Pulse Resp B/P Pulse Ox O2 Delivery O2 Flow Rate FiO2 08/09/16 06:17 97.8 104 18 155/83 97 Assessment & Plan Problem List: (1) Schizoaffective disorder, bipolar type ICD Code: F25.0 Assessment & Plan Estimated LOS: days patient psychosis resolving, showing increased focus and processing. Compliant medication. At this time I feel patient does not meet Floyd criteria will lift Floyd act allow him to sign voluntary Justification for Cont. Inpt. At this time patient will decompensate the placed in a lower level of care Discharge Planning To be determined Request HC Surrog/Guard Advoc?: No Ko Schrader MD Aug 09, 2016 13:53
[2016-08-09] MEDS: OLANZapine ODT 15 MG TAB PO SCH (20:48)
[2016-08-09] MEDS: REMOVE OLD PATCH T-DERMAL SCH (21:00)
[2016-08-09] MEDS: ALUMINUM/MAGNESIUM/SIMETH 30 ML CUP PO PRN (23:45)
[2016-08-10] MEDS: cloNIDine HCL 0.1 MG TAB PO PRN (05:38)
[2016-08-10 05:51] VITALS: BP 167/96; PULSE 110; RESP 18; TEMP 97.6; O2SAT 97
[2016-08-10 08:30] VITALS: BP 180/99; PULSE 100; RESP 16
[2016-08-10] MEDS: CARVEDILOL 6.25 MG TAB PO SCH (08:39)
[2016-08-10] MEDS: NICOTINE 21 MG/24 HR PATCH T-DERMAL SCH (08:55)
[2016-08-10 10:46] VITALS: BP 154/80; PULSE 88; RESP 16
[2016-08-10] MEDS: ALUMINUM/MAGNESIUM/SIMETH 30 ML CUP PO PRN (12:05)
[2016-08-10 12:09] VITALS: BP 141/92; PULSE 104; RESP 16; TEMP 97.9; O2SAT 97
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
--- NOTE | 2016-08-10 14:58 | HHI.PYPN ---
Subjective Remarks Patient seen in [place] with medical student Ramiro, chart reviewed. Patient compliant medications. Patient continues to improve his focused attention, has improved eye contact is showing some improvement of his processing also. He denies suicidality homicidality voices or visions. The patient continues to do well consider discharging him tomorrow to follow-up Lai Marchman act Review of Systems Except as stated in HPI: all other systems reviewed are Neg Objective Alert: Yes [place]: Person, Place, Date Mood: Anxious (slightly), Calm Affect: Euthymic (to somewhat restricted) Memory Intact: Comment (fair) Hallucinations: Auditory (denies today) Delusions: Yes Delusion Type: Paranoid (markedly decreased) Suicidal: Ideation (denies) Homicidal: Ideation (denies) Insight/Judgment Poor Vitals/IOs Vital Signs Date Time Temp Pulse Resp B/P Pulse Ox O2 Delivery O2 Flow Rate FiO2 08/10/16 12:09 97.9 104 16 141/92 97 Assessment & Plan Problem List: (1) Schizoaffective disorder, bipolar type ICD Code: F25.0 Assessment & Plan Estimated LOS: days patient continues somewhat vigilant though markedly improved softer more focused. Compliant medication Justification for Cont. Inpt. At this time patient will decompensate in place to the lower level of care Discharge Planning To be determined Request HC Surrog/Guard Advoc?: No Ko Schrader MD Aug 10, 2016 14:58
[2016-08-10 18:06] VITALS: BP 150/88; PULSE 108; RESP 18; TEMP 97.7; O2SAT 99
[2016-08-10] MEDS: LORazepam 1 MG TAB PO PRN (18:35)
[2016-08-10] MEDS: CARVEDILOL 12.5 MG TAB PO SCH (21:00)
[2016-08-10] MEDS: REMOVE OLD PATCH T-DERMAL SCH (21:00)
[2016-08-10] MEDS: OLANZapine ODT 15 MG TAB PO SCH (21:20)
[2016-08-10] MEDS: hydrOXYzine HCL 50 MG TAB PO PRN (22:06)
[2016-08-11] MEDS: LORazepam 1 MG TAB PO PRN (01:20)
[2016-08-11 05:48] VITALS: BP 109/59; PULSE 70; RESP 16; TEMP 98; O2SAT 98
[2016-08-11] MEDS: CARVEDILOL 12.5 MG TAB PO SCH (08:55)
[2016-08-11] MEDS: NICOTINE 21 MG/24 HR PATCH T-DERMAL SCH (09:00)
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
[2016-08-11] MEDS ORDERED: AMLO5 PO (13:11)
[2016-08-11] MEDS ORDERED: CARV12.5 PO (13:11)
[2016-08-11] MEDS ORDERED: OLANZ15 PO (13:11)
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
[2016-08-12] MEDS ORDERED: amLODIPine BESYLATE 5 MG TAB PO SCH (09:00)
[2016-08-12] MEDS ORDERED: HYDR-3133 PO (09:55)
== END 2016-08-11 14:50 | disposition home or self-care (01) | DRG 885 ==
LOC: H270 17:12 → H260 08-10 13:15
PROVIDERS: ADMIT Psychiatry & Neurology Psychiatry; ATTEND Psychiatry & Neurology Psychiatry
DX: F25.0 Schizoaffective disorder, bipolar type (principal); J96.90 Respiratory failure, unspecified, unspecified whether with hypoxia or hypercapnia; S21.119A Laceration without foreign body of unspecified front wall of thorax without penetration into thoracic cavity, initial encounter; I10 Essential (primary) hypertension; S11.91XA Laceration without foreign body of unspecified part of neck, initial encounter; J93.9 Pneumothorax, unspecified; X78.1XXA Intentional self-harm by knife, initial encounter; Y92.410 Unspecified street and highway as the place of occurrence of the external cause; K21.9 Gastro-esophageal reflux disease without esophagitis; Z79.899 Other long term (current) drug therapy; Z87.891 Personal history of nicotine dependence
CPT/HCPCS: 80053; 80061; 83036; 85025; 93005; J1200; Q0163

== ENCOUNTER 2016-08-13 04:24 | Emergency (ER) | payer OTHER ==
[~2016-08-13] VITALS: Ht 170.2 cm; Wt 115.0 kg
[~2016-08-13 04:24] MED LIST changes: +AMLO5 PO; +CARV12.5 PO; +HYDR-3133 PO; +OLANZ15 PO
[2016-08-13 04:29] VITALS: BP 148/94; PULSE 103; RESP 18; TEMP 98.2; O2SAT 96
--- NOTE | 2016-08-13 04:48 | PD ---
HPI Chief Complaint: Psychiatric Symptoms Time Seen by Provider: 04:32 Travel History International Travel<30 days: No Contact w/Intl Traveler<30days: No Traveled to known affect area: No History of Present Illness HPI The patient is a 41-year-old [place] male who presents emergency department via EMS for psychiatric evaluation. The patient states he has a history of schizophrenia and normally takes Zyprexa. The patient was recently admitted to the hospital and discharged several days ago. The patient states he took 1 Zyprexa earlier tonight, with a call to EMS he can be evaluated by psychiatry. He denies any current suicidal or homicidal ideation, however, does note he has attempted suicide in the past. He is not currently suicidal and does not have a current suicidal plan. He denies ingestion of any other medications except for the Zyprexa. He denies any physical complaints. He denies any ingestion of illicit drugs or alcohol use. He denies any current hallucinations or delusions. PFSH Past Medical History Asthma: Yes Autoimmune Disease: No Anxiety: Yes Depression: Yes Cancer: No Cardiovascular Problems: No Diabetes: No Endocrine: No Gastrointestinal Disorders: No Genitourinary: No Immune Disorder: No Implanted Vascular Access Dvce: No Musculoskeletal: No Neurologic: No Psychiatric: Yes Reproductive: No Respiratory: No Thyroid Disease: No Past Surgical History Abdominal Surgery: Yes (JULY 28 2016) Other Surgery: Yes Social History Tobacco Use: Yes Substance Use: No Allergies-Medications (Allergen,Severity, Reaction): Coded Allergies: Penicillin (Verified Allergy, Unknown, 08/13/16) Haldol (Verified Adverse Reaction, Unknown, 08/13/16) Reported Meds & Prescriptions Reported Meds & Active Scripts Active Hydroxyzine HCl 25 Mg Tab 25 Mg PO TID Zyprexa Zydis (Olanzapine) 15 Mg Tab 15 Mg PO HS Coreg (Carvedilol) 12.5 Mg Tab 12.5 Mg PO BID Norvasc (Amlodipine Besylate) 5 Mg Tab 5 Mg PO DAILY Eq Milk of Magnesia (Magnesium Hydroxide) 1,200 Mg/15 Ml Rhonda 30 Ml PO Q12H PRN 30 Days Senna Plus 8.6-50 mg (Sennosides-Docusate Sodium) 1 Tab Tab 1 Tab PO BID 30 Days Eq Acetaminophen (Acetaminophen) 325 Mg Tab 650 Mg PO Q6H PRN 30 Days Review of Systems Except as stated in HPI: all other systems reviewed are Neg Cardiovascular: No: Chest Pain or Discomfort Respiratory: No: Shortness of Breath Gastrointestinal: No: Nausea, Vomiting, Abdominal Pain Neurologic: No: Change in Mentation Psychiatric: Positive: Disorder of Thought, No: Substance Abuse Physical Exam Narrative GENERAL: Awake, alert, nontoxic-appearing 41-year-old male who appears his stated age and is in no acute respiratory distress. SKIN: Focused skin assessment warm/dry. HEAD: Atraumatic. Normocephalic. EYES: No injection or drainage. ENT: No nasal bleeding or discharge. Mucous membranes pink and moist. NECK: Trachea midline. No JVD. CARDIOVASCULAR: Regular, tachycardic with a heart rate 100. RESPIRATORY: No accessory muscle use. Clear to auscultation. Breath sounds equal bilaterally. MUSCULOSKELETAL: No obvious deformities. No clubbing. No cyanosis. No edema. NEUROLOGICAL: Awake and alert. No obvious cranial nerve deficits. Motor grossly within normal limits. Normal speech. Nonfocal. Oriented times to person, place, month, and year. PSYCHIATRIC: Odd affect. Insight and judgment appear normal. Data Data Last Documented VS Vital Signs Date Time Temp Pulse Resp B/P Pulse Ox O2 Delivery O2 Flow Rate FiO2 08/13/16 04:29 98.2 103 18 148/94 96 Orders Complete Blood Count With Diff (08/13/16 04:32) Comprehensive Metabolic Panel (08/13/16 04:32) Psych Screen (08/13/16 04:32) Drug Screen, Random Urine (08/13/16 04:32) Alcohol (Ethanol) (08/13/16 04:32) Tylenol (Acetaminophen) (08/13/16 04:32) Salicylates (Aspirin) (08/13/16 04:32) Labs Laboratory Tests Test 08/13/16 08/13/16 04:40 04:42 White Blood Count 8.8 TH/MM3 Red Blood Count 4.43 MIL/MM3 Hemoglobin 12.7 GM/DL Hematocrit 37.4 % Mean Corpuscular Volume 84.3 FL Mean Corpuscular Hemoglobin 28.6 PG Mean Corpuscular Hemoglobin 33.9 % Concent Red Cell Distribution Width 13.8 % Platelet Count 493 TH/MM3 Mean Platelet Volume 7.2 FL Neutrophils (%) (Auto) 56.7 % Lymphocytes (%) (Auto) 27.9 % Monocytes (%) (Auto) 11.3 % Eosinophils (%) (Auto) 2.8 % Basophils (%) (Auto) 1.3 % Neutrophils # (Auto) 5.0 TH/MM3 Lymphocytes # (Auto) 2.5 TH/MM3 Monocytes # (Auto) 1.0 TH/MM3 Eosinophils # (Auto) 0.3 TH/MM3 Basophils # (Auto) 0.1 TH/MM3 CBC Comment DIFF FINAL Differential Comment Sodium Level 142 MEQ/L Potassium Level 3.9 MEQ/L Chloride Level 108 MEQ/L Carbon Dioxide Level 23.9 MEQ/L Anion Gap 10 MEQ/L Blood Urea Nitrogen 22 MG/DL Creatinine 1.04 MG/DL Estimat Glomerular Filtration 96 ML/MIN Rate Random Glucose 94 MG/DL Calcium Level 8.7 MG/DL Total Bilirubin 0.5 MG/DL Aspartate Amino Transf 19 U/L (AST/SGOT) Alanine Aminotransferase 26 U/L (ALT/SGPT) Alkaline Phosphatase 45 U/L Total Protein 7.7 GM/DL Albumin 3.6 GM/DL Acetaminophen Level LESS THAN 2.0 MCG/ML Ethyl Alcohol Level LESS THAN 3 MG/DL Urine Opiates Screen NEG Urine Barbiturates Screen NEG Urine Amphetamines Screen NEG Urine Benzodiazepines Screen NEG Urine Cocaine Screen NEG Urine Cannabinoids Screen NEG MDM Medical Decision Making Medical Screen Exam Complete: Yes Emergency Medical Condition: Yes Medical Record Reviewed: Yes Interpretation(s) Laboratory Tests Test 08/13/16 08/13/16 04:40 04:42 White Blood Count 8.8 TH/MM3 Red Blood Count 4.43 MIL/MM3 Hemoglobin 12.7 GM/DL Hematocrit 37.4 % Mean Corpuscular Volume 84.3 FL Mean Corpuscular Hemoglobin 28.6 PG Mean Corpuscular Hemoglobin 33.9 % Concent Red Cell Distribution Width 13.8 % Platelet Count 493 TH/MM3 Mean Platelet Volume 7.2 FL Neutrophils (%) (Auto) 56.7 % Lymphocytes (%) (Auto) 27.9 % Monocytes (%) (Auto) 11.3 % Eosinophils (%) (Auto) 2.8 % Basophils (%) (Auto) 1.3 % Neutrophils # (Auto) 5.0 TH/MM3 Lymphocytes # (Auto) 2.5 TH/MM3 Monocytes # (Auto) 1.0 TH/MM3 Eosinophils # (Auto) 0.3 TH/MM3 Basophils # (Auto) 0.1 TH/MM3 CBC Comment DIFF FINAL Differential Comment Sodium Level 142 MEQ/L Potassium Level 3.9 MEQ/L Chloride Level 108 MEQ/L Carbon Dioxide Level 23.9 MEQ/L Anion Gap 10 MEQ/L Blood Urea Nitrogen 22 MG/DL Creatinine 1.04 MG/DL Estimat Glomerular Filtration 96 ML/MIN Rate Random Glucose 94 MG/DL Calcium Level 8.7 MG/DL Total Bilirubin 0.5 MG/DL Aspartate Amino Transf 19 U/L (AST/SGOT) Alanine Aminotransferase 26 U/L (ALT/SGPT) Alkaline Phosphatase 45 U/L Total Protein 7.7 GM/DL Albumin 3.6 GM/DL Acetaminophen Level LESS THAN 2.0 MCG/ML Ethyl Alcohol Level LESS THAN 3 MG/DL Urine Opiates Screen NEG Urine Barbiturates Screen NEG Urine Amphetamines Screen NEG Urine Benzodiazepines Screen NEG Urine Cocaine Screen NEG Urine Cannabinoids Screen NEG Differential Diagnosis Differential diagnosis includes schizophrenia, schizoaffective disorder, bipolar affective disorder, psychosis, malingering. Narrative Course Labs were drawn and sent. Psychiatric evaluation was ordered. Labs are unremarkable. However, the patient wanted to leave AGAINST MEDICAL ADVICE prior psychiatric evaluation. The patient is not suicidal or homicidal, is awake and alert and oriented 5, he is able to make a reasonable decision. Therefore, patient left against medical assembler. Procedures Procedure Narrative AMA: The risks of leaving against medical advice without further evaluation treatment were discussed with the patient. These risks include cardiac dysfunction, cardiac dysrhythmia, possible heart attack, possible stroke or . The patient indicated understanding of these risks and appeared to have the capacity to make this decision. Diagnosis Primary Impression: Schizoaffective disorder, bipolar type Patient Instructions: General Instructions Additional Instructions: Return if symptoms worsen or progress. Follow-up at [facility]. Disposition: AGAINST MEDICAL ADVICE Condition: Stable Jason Rubalcava MD Aug 13, 2016 04:48
[2016-08-13 04:58] LABS: BASOPHIL # 0.1 TH/MM3 (0-0.2); BASOPHIL % 1.3 % (0.0-2.0); EOSINOPHIL # 0.3 TH/MM3 (0-0.4); EOSINOPHIL % 2.8 % (0.0-4.0); HEMATOCRIT 37.4 % (39.0-51.0); HEMO FLAGS DIFF FINAL; LYMPH % 27.9 % (9.0-44.0); LYMPHOCYTE # 2.5 TH/MM3 (1.0-4.8); MEAN CELL VOLUME 84.3 FL (80.0-100.0); MEAN CORPUSCULAR HEMOGLOBIN 28.6 PG (27.0-34.0); MEAN CORPUSCULAR HGB CONC 33.9 % (32.0-36.0); MONO % 11.3 % (0.0-8.0); NEUT % 56.7 % (16.0-70.0); PLATELET COUNT 493 TH/MM3 (150-450); RED BLOOD COUNT 4.43 MIL/MM3 (4.50-5.90); RED CELL DISTRIBUTION WIDTH 13.8 % (11.6-17.2); WHITE BLOOD COUNT 8.8 TH/MM3 (4.0-11.0)
[2016-08-13 05:06] LABS: AMPHETAMINE, URINE NEG (NEG); BARBITURATES, URINE NEG (NEG); COCAINE, URINE NEG (NEG)
[2016-08-13 05:11] LABS: ANION GAP 10 MEQ/L (5-15); AST (GOT) 19 U/L (15-37); BICARBONATE 23.9 MEQ/L (21.0-32.0); BLOOD UREA NITROGEN 22 MG/DL (7-18); CHLORIDE 108 MEQ/L (98-107); GLOMERULAR FILTRATION RATE 96 ML/MIN (>89); POTASSIUM 3.9 MEQ/L (3.5-5.1); SODIUM (NA) 142 MEQ/L (136-145)
[2016-08-13 05:13] LABS: ACETAMINOPHEN LESS THAN 2.0 MCG/ML (10.0-30.0); ALT (GPT) 26 U/L (12-78)
[2016-08-13 05:14] LABS: ALKALINE PHOSPHATASE 45 U/L (45-117); TOTAL BILIRUBIN ADULT 0.5 MG/DL (0.2-1.0)
== END 2016-08-13 05:38 | disposition left against medical advice (07) ==
LOC: NEPC 04:24
DX: F25.0 Schizoaffective disorder, bipolar type (principal); Z79.899 Other long term (current) drug therapy
CPT/HCPCS: 80053; 80307; 85025; 99283